=== PATIENT | female | born 1955 | race Caucasian/White ===

== ENCOUNTER 2018-10-31 05:30 | Day surgery (SDC) | payer MEDICARE, OTHER ==
[~2018-10-31] VITALS: Ht 157.5 cm; Wt 64.5 kg
[~2018-10-31 05:30] MED LIST: BENZOCAINE 20% 50 MCG/SPRAY 57 GM TP ONE; DOXY100C PO; EPINEPHrine 1:1,000 [1 MG/ML] AMP IM ONE; FLUT16H NASAL; FLUT220HFA IH; INSLAN SQ; INSNOV SQ; LIDOCAINE 4% 50 ML SOLUTION TP ONE; METF-960 PO; MONT10TA21 PO; PRED10 PO; RANI150T7 PO; SERT100T12 PO; SODIUM CHLORIDE 0.9% 1,000 ML IV ONE; TIZA4TAB4 PO; ZOLP10TA7 PO
[2018-10-31] MEDS ORDERED: LIDOCAINE 2% 5 ML JELLY TP ONE (05:31)
[2018-10-31] MEDS ORDERED: LIDOCAINE 4% 50 ML SOLUTION TP ONE (05:31)
[2018-10-31] MEDS ORDERED: BENZOCAINE 20% 50 MCG/SPRAY 57 GM TP ONE (05:31)
[2018-10-31] MEDS ORDERED: SODIUM CHLORIDE 0.9% 1,000 ML IV ONE ×2 (06:14→06:30)
[2018-10-31 07:29] LABS: GLUCOMETER DEV NAME(LOC) SDS.; GLUCOSE,POINT OF CARE 260 MG/DL (70-110)
[2018-10-31] MEDS ORDERED: MIDAZOLAM HCL 2 MG/2 ML VIAL ONE (07:29)
[2018-10-31] MEDS ORDERED: FentaNYL CITRATE-PF 100 MCG/2 ML VIAL ONE (07:29)
[2018-10-31] MEDS ORDERED: MethylPREDNISolone SOD SUCC 125 MG/2 ML VIAL IVP ONE (09:00)
[2018-10-31] MEDS ORDERED: MethylPREDNISolone SOD SUCC 125 MG/2 ML VIAL ONE (09:02)
[2018-10-31] MEDS ORDERED: OXYGEN THERAPY IH SCH (20:00)
== END 2018-10-31 10:45 | disposition home or self-care (01) ==
LOC: SURGERY 05:30
PROVIDERS: ATTEND Internal Medicine Critical Care Medicine
DX: J38.4 Edema of larynx (principal); B37.0 Candidal stomatitis; J84.111 Idiopathic interstitial pneumonia, not otherwise specified; J98.09 Other diseases of bronchus, not elsewhere classified; J98.8 Other specified respiratory disorders; J43.9 Emphysema, unspecified; Z87.09 Personal history of other diseases of the respiratory system; E11.9 Type 2 diabetes mellitus without complications; Z79.891 Long term (current) use of opiate analgesic; Z79.4 Long term (current) use of insulin; Z79.84 Long term (current) use of oral hypoglycemic drugs; Z79.899 Other long term (current) drug therapy
CPT/HCPCS: 31623; 31624; 71045; 82962; 87015; 87070; 87101; 87205; 87206; 87220; 88108; 88312; J0171; J2250; J2930; J3010; J7030 ×2